=== PATIENT | male | born 1980 | race Caucasian/White ===

== ENCOUNTER 2017-11-21 13:23 | Emergency (ER) | payer OTHER, BC ==
[~2017-11-21] VITALS: Ht 172.7 cm; Wt 70.0 kg
[2017-11-21 14:11] VITALS: BP 137/102
[2017-11-21] MEDS ORDERED: KEFLEX500 M1 PO (14:22)
[2017-11-21] MEDS ORDERED: TORADOL PO (14:22)
== END 2017-11-21 14:32 | disposition home or self-care (01) | DRG 605 ==
LOC: ED 13:23
DX: S61.303A Unspecified open wound of left middle finger with damage to nail, initial encounter (principal); S62.633A Displaced fracture of distal phalanx of left middle finger, initial encounter for closed fracture; W31.89XA Contact with other specified machinery, initial encounter; Y93.89 Activity, other specified; Y92.89 Other specified places as the place of occurrence of the external cause